=== PATIENT | male | born 1975 | race Hispanic/Latino ===

== ENCOUNTER 2018-08-19 12:05 | Observation (INO) | payer OTHER ==
[2018-08-19 12:53] LABS: #Basophils 0.1 thou/uL (0.0-0.2); #Eosinphils 0.2 thou/uL (0.0-0.7); #Lymphocytes 1.5 thou/uL (1.20-3.40); #Monocytes 0.9 thou/uL (0.11-0.59); #Neutrophils 5.9 thou/uL (1.40-6.50); %Basophils 0.8 % (0.0-1.0); %Monocytes 10.3 % (0.0-10.0); Hemoglobin 15.2 g/dL (14.0-18.0); Mean Corpuscular HGB CONC 33.3 g/dL (32.0-36.0); Mean Corpuscular Hemoglobin 29.9 pg (27.0-31.0); Mean Corpuscular Volume 89.6 fL (78.0-98.0); Mean Platelet Volume 7.8 fL (7.4-10.4); Platelet Count 284 thou/uL (130-400); Red Blood Cell (RBC) Count 5.09 mill/uL (4.70-6.10); White Blood Cell (WBC) Count 8.5 thou/uL (4.8-10.8)
--- NOTE | 2018-08-19 13:07 | RAD ---
SINGLE VIEW CHEST: Date; 08/19/18 COMPARISON: None. HISTORY: Elevated heart rate and chest palpitations. FINDINGS: Single view of the chest shows a normal sized cardiomediastinal silhouette. There is no evidence of c onsolidation, mass, or pleural effusion. The bones are unremarkable. IMPRESSION: No evidence of acute cardiopulmonary disease. POS: TPC
[2018-08-19] MEDS ORDERED: Enoxaparin Sodium 100 MG/ML SYRINGE ONE (13:37)
[2018-08-19] MEDS ORDERED: Diltiazem HCl 125 MG, Admixture Fee 1 EACH in Sodium Chloride 0.9% 100 ML IVPB SCH (13:45)
[2018-08-19 13:54] LABS: Albumin 3.7 g/dL (3.5-5.0)
[2018-08-19 13:55] LABS: Chloride 108 mmol/L (98-107); Potassium 3.9 mmol/L (3.5-5.1); Sodium 138 mmol/L (136-145)
[2018-08-19 13:56] LABS: Calcium 8.8 mg/dL (7.8-10.44); Glucose 120 mg/dL (70-105)
[2018-08-19 13:57] LABS: Protein, Total 6.7 g/dL (6.0-8.3)
[2018-08-19 13:58] LABS: Anion Gap 10 mmol/L (10-20); Bilirubin, Total 0.3 mg/dL (0.2-1.2); Carbon Dioxide 24 mmol/L (22-29)
[2018-08-19 13:59] LABS: Alkaline Phosphatase 73 U/L (40-150)
[2018-08-19 14:00] LABS: Calc. Creatinine Clearance 256 mL/min (70-130); Estimated GFR-MDRD Greater than 90
[2018-08-19 14:01] LABS: BUN (Urea Nitrogen) 14 mg/dL (8.9-20.6)
[2018-08-19 14:02] LABS: ALT (SGPT) 21 U/L (8-55); AST (SGOT) 13 U/L (5-34)
[2018-08-19] MEDS ORDERED: Acetaminophen 325 MG TAB PO PRN (14:37)
[2018-08-19] MEDS ORDERED: Diltiazem 125 MG in Sodium Chloride 0.9% 100 ML IVPB SCH (14:45)
[2018-08-19 16:59] LABS: Troponin I Less than 0.010 ng/mL (< 0.028)
[2018-08-19 17:27] VITALS: BMI 52.9
--- NOTE | 2018-08-19 21:58 | HP ---
HISTORY OF PRESENT ILLNESS: This patient is a 43-year-old male who presented to the hospital via the emergency department. The patient reports that he lives in [place] and he is here with work. He works with the [employer]. The patient then had been up much of the night, which is typical for him with his job. This morning, he was lying down, rolled onto his left side and felt some palpitations and felt his heart beating in his neck and throat area. He recognized this to be abnormal, so he checked his Apple watch, the Apple watch gave him a message that told him he needed to seek medical attention. He subsequently walked into the hallway of the hotel, saw a passerby and asked him to call 911. He reports the symptoms remained and he had a brief episode of feeling a bit lightheaded, but he is feeling better now. Reportedly, the patient received 2 doses of Cardizem en route from EMS without improvement of his symptoms or his heart rate. He then had a dose of amiodarone, which again failed to have any significant improvement. However, in the emergency department he received another dose of Cardizem and has had improvement of his overall heart rate. He is currently on a Cardizem drip and as mentioned, is feeling better. He has also had 1.5 L of normal saline and has received a 100 mg dose of Lovenox. He denies any nausea, vomiting, chest pain, shortness of breath, sleep disturbances and states he actually felt quite well right up until the time this occurred. REVIEW OF SYSTEMS: All other systems reviewed. All pertinent positives and negatives noted in the history of present illness. PAST MEDICAL HISTORY: None. PAST SURGICAL HISTORY: None. FAMILY HISTORY: His mother has lupus, diabetes, cardiomyopathy and hypothyroidism status post thyroidectomy. He has a sister with lupus. SOCIAL HISTORY: The patient is a nonsmoker, nondrinker, and nondrug user. He is . He is full code. His would be his surrogate decision maker should that become necessary. ALLERGIES: NONE. MEDICATIONS: None. PHYSICAL EXAMINATION: VITAL SIGNS: BP has ranged from 109/67 with a pulse of 91 to 137/103 with a pulse of 110, his respirations 26, O2 saturation 97% on room air. GENERAL APPEARANCE: Age-appropriate male. He is obese, awake, alert, oriented, pleasant, cooperative, in no distress. HEENT: [place]. No OP lesions. NECK: Supple and symmetric with no lymphadenopathy, JVD, or carotid bruits. HEART: Tachycardic without murmurs, gallops, or rubs. EYES: Regular. LUNGS: Clear to auscultation bilaterally with good chest wall expansion and air exchange. ABDOMEN: Soft, nontender, and nondistended. Positive bowel sounds. No masses. No organomegaly. EXTREMITIES: Has trace pretibial pitting edema bilaterally. No cyanosis or edema. SKIN: Warm and dry with no lesions. NEUROLOGIC: The patient is fully intact without focal deficits. LABORATORY DATA: White count 8.5, hemoglobin 15.2, platelets 284. Sodium 138, potassium 3.9, chloride 108, CO2 is 24, BUN 14, creatinine 0.81, glucose 120, AST is 13, ALT is 21. Troponin less than 0.01. Albumin is 3.7. TSH 1.89. IMAGING: Chest x-ray is negative. EKG shows atrial fibrillation with RVR with a rate of 120 with possible left anterior fascicular block. IMPRESSION AND PLAN: New onset atrial fibrillation with rapid ventricular response. The patient now has a better rate control on a Cardizem drip and is symptomatically improved. There is no evidence of underlying metabolic or infectious etiology that might have triggered this. He does not appear to have an ischemic event either we will keep him on telemetry and check troponins. Consult Cardiology and the patient has already received a dose of therapeutic Lovenox. Given the fairly abrupt onset, the patient may be a candidate for cardioversion and we will defer that to Cardiology. Job ID: [id number]
[2018-08-19 23:59] LABS: Troponin I Less than 0.010 ng/mL (< 0.028)
[2018-08-20 04:14] LABS: Anion Gap 9 mmol/L (10-20); BUN (Urea Nitrogen) 12 mg/dL (8.9-20.6); Calc. Creatinine Clearance 276 mL/min (70-130); Calcium 8.6 mg/dL (7.8-10.44); Carbon Dioxide 25 mmol/L (22-29); Chloride 108 mmol/L (98-107); Estimated GFR-MDRD Greater than 90; Glucose 93 mg/dL (70-105); Potassium 3.8 mmol/L (3.5-5.1); Sodium 138 mmol/L (136-145)
--- NOTE | 2018-08-20 10:59 | PRG ---
DATE OF SERVICE: 08/20/2018 SUBJECTIVE: He feels well. No complaints at his baseline. OBJECTIVE: VITAL SIGNS: Temperature 98.7, pulse 63, respirations 14, O2 saturation 98% on room air, and blood pressure is 99/58. GENERAL APPEARANCE: Age-appropriate male, obese, no distress. Awake, alert, oriented, pleasant, and cooperative. HEART: Regular rate and rhythm without murmurs, gallops, or rubs. LUNGS: Clear to auscultation bilaterally with good chest wall expansion and air exchange. ABDOMEN: Soft, nontender, and nondistended. Positive bowel sounds. EXTREMITIES: No edema. LABORATORY DATA: Sodium 138, potassium 3.8, chloride 108, CO2 of 25, BUN is 12, and creatinine 0.77. IMPRESSION AND PLAN: New-onset atrial fibrillation in an otherwise healthy, relatively young male whose only medical issue is some obesity. This was transient, resolved with Cardizem drip, converted back to a sinus rhythm last night. He feels back at his baseline. His electrolytes were normal. His TSH was normal. Once his echocardiogram is read, Cardiology has a chance to see him. He will likely be able to discharge home later today. His CHADS-VASc score is 0 and may only need aspirin for any anticoagulation. We will defer that decision to Cardiology. The patient was encouraged to lose weight and follow up in [place], where he can establish with a PCP. Job ID: [id number]
[2018-08-20] MEDS ORDERED: Aspirin 81 mg Enteric Coated Tablet PO SCH ×2 (13:30→15:00)
[2018-08-20] MEDS ORDERED: Aspirin 325 mg Enteric Coated Tablet PO SCH (14:45)
[2018-08-20 15:56] VITALS: BP 129/95; TEMP 97.9
--- NOTE | 2018-08-20 21:47 | CON ---
DATE OF CONSULTATION: HISTORY OF PRESENT ILLNESS: The patient is a pleasant 43-year-old gentleman, who presents with palpitations. The patient has no previous cardiac history. He was in his usual state of health when he noticed having rapid palpitations. He denied having any chest discomfort or dyspnea. He presented to the emergency room for further evaluation. PAST MEDICAL HISTORY: None. PAST SURGICAL HISTORY: None. SOCIAL HISTORY: Nonsmoker. FAMILY HISTORY: Positive family history of cardiomyopathy. ALLERGIES: NO KNOWN DRUG ALLERGIES. MEDICATIONS: None. PHYSICAL EXAMINATION: GENERAL: Obese gentleman, in no acute distress. VITAL SIGNS: Blood pressure of 105/64. NECK: No jugular venous distention. No carotid bruits. LUNGS: Clear to auscultation. HEART: Regular rate and rhythm. Normal S1, S2. No murmurs. ABDOMEN: Distended. EXTREMITIES: Showed no edema. VASCULAR: Radial pulses 2+. LABORATORY DATA: White blood cell count 8.5, hemoglobin 15.2, hematocrit 45.6, and platelets are 284. Sodium 138, potassium 3.8, chloride 108, bicarbonate 25, BUN 12, creatinine 0.77. Troponin less than 0.01. EKG revealed atrial fibrillation with rapid ventricular response. IMPRESSION: New onset atrial fibrillation. This gentleman presents with atrial fibrillation. He has a CHADS-VASc score of zero. From a cardiac standpoint, he can be treated with aspirin alone. We will check the patient's echocardiogram. We will follow this patient with you through his hospitalization. Job ID: [id number] MTDD
[2018-08-21] MEDS ORDERED: Aspirin 325 mg Enteric Coated Tablet PO SCH (09:00)
== END 2018-08-20 18:26 | disposition home or self-care (01) ==
LOC: ERS 12:05 → INTOOBSV 14:01 → ERHOLD 14:01 → 2NO 17:04
PROVIDERS: ADMIT Internal Medicine; ATTEND Internal Medicine
DX: I48.91 Unspecified atrial fibrillation (principal); E66.9 Obesity, unspecified; Z68.43 Body mass index [BMI] 50.0-59.9, adult
CPT/HCPCS: 36415; 71045; 80048; 80053; 84443; 84484; 85025; 93005; 93010; 93306; 96361; 96365; 96366; 96372; 96376; G0378; J1650; J3490